=== PATIENT | female | born 1985 | race American Indian/Alaskan Native ===

== ENCOUNTER 2018-07-09 10:13 | Emergency (ER) | payer MEDICAID, OTHER ==
[2018-07-09 10:22] VITALS: RESP 18; O2SAT 98
--- NOTE | 2018-07-09 11:05 | ED PDOC ---
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 Pt states that she began having a mild sore throat about 4 days ago. Took Ibuprofen with some relief. Developed cough around the same time now persistent and productive of yellow/green sputum. States that she is having sharp/achy chest pain with deep breaths and when coughing. Denies hx of HTN, HL, CAD/ND, DM. Mother had cardiac stents. Denies radiation down arm, SOB, dizziness, palpitations, N/V, diarrhea, fever, chills or night sweats. Past Medical History Reviewed: Historical Data, Nursing Documentation, Vital Signs Vital Signs: Last Vital Signs Temp 99 F 07/09/18 10:18 Pulse 86 07/09/18 10:18 Resp 18 07/09/18 10:18 BP 154/83 H 07/09/18 10:18 Pulse Ox 98 07/09/18 10:18 - Medical History PMH: No Chronic Diseases - Family History Family History: States: CAD (mother had cardiac stents) - Social History Current smoker - smoking cessation education provided: No Ex-Smoker (has not smoked in the last 12 months): No Alcohol: Occasional Drugs: Denies - Immunization History Hx Tetanus Toxoid Vaccination: No Hx Influenza Vaccination: No Hx Pneumococcal Vaccination: No - Home Medications Home Medications: Ambulatory Orders Medication Instructions Recorded Amoxicillin/Clavulanate [Augmentin 1 tab PO BID #14 tab 07/10/16 875 MG-125 MG] Ibuprofen [Motrin] 600 mg PO Q6 #20 tab 07/10/16 Ibuprofen [Motrin Tab] 600 mg PO Q6H PRN 7 Days tab 07/09/18 - Allergies Allergies/Adverse Reactions: Allergies Allergy/AdvReac Type Severity Reaction Status Date / Time No Known Allergies Allergy Verified 07/09/18 10:22 Review of Systems ROS Statement: Except As Marked, All Systems Reviewed And Found Negative Constitutional: Negative for: Fever, Chills, Sweats, Weakness, Malaise ENT: Positive for: Nose Discharge, Nose Congestion, Throat Pain. Negative for: Ear Pain Cardiovascular: Positive for: Chest Pain. Negative for: Palpitations Respiratory: Positive for: Cough, SOB with Exertion, Pleuritic Pain, Sputum. Negative for: Shortness of Breath, Hemoptysis Gastrointestinal: Negative for: Nausea, Vomiting Genitourinary Female: Negative for: Dysuria Musculoskeletal: Negative for: Neck Pain Skin: Negative for: Rash Neurological: Positive for: Weakness Physical Exam - Reviewed Nursing Documentation Reviewed: Yes Vital Signs Reviewed: Yes - Physical Exam Appears: Positive for: Non-toxic Head Exam: Positive for: ATRAUMATIC, NORMAL INSPECTION Skin: Positive for: Normal Color Eye Exam: Positive for: Normal appearance ENT: Positive for: Pharynx Is (mild erythema with some swelling) Neck: Positive for: Normal, Painless ROM Cardiovascular/Chest: Positive for: Regular Rate, Rhythm Respiratory: Positive for: Normal Breath Sounds Gastrointestinal/Abdominal: Positive for: Normal Exam Back: Positive for: Normal Inspection Lymphatic: Positive for: Normal Exam Neurologic/Psych: Positive for: Alert, Oriented Medical Decision Making Medical Decision Making: Rapid flu Rapid strep Urine preg CXR EKG Trop Trop < 0.2 EKG sinus rhythm HR 76, no ischemic change. CXR: no consolidation or mass noted by my read. Rapid flu and rapid strep negative - ECG O2 Sat by Pulse Oximetry: 98 Disposition - Clinical Impression Clinical Impression: Viral pharyngitis - Patient ED Disposition Is Patient to be Admitted: No - Disposition Referrals: Glynn Jefferson MD [Staff Provider] - Disposition: Routine/Home Disposition Time: 12:40 Condition: STABLE Additional Instructions: Use Ibuprofen and Tylenol for throat pain. Over the counter cough medication Prescriptions: Ibuprofen [Motrin Tab] 600 mg PO Q6H PRN 7 Days tab PRN Reason: Pain, Moderate (4-7) Instructions: Viral Pharyngitis Forms: [facility] (E[place]ian), [facility] School/Work Excuse Print Language: CONGOLESE
--- NOTE | 2018-07-09 11:36 | CARD ---
APPROVED REPORT Date of service: 07/09/2018 EKG Measurement Heart [id number] <Conclusion> Normal sinus rhythm Normal ECG
[2018-07-09 13:01] VITALS: BP 135/68; PULSE 76; TEMP 98
--- NOTE | 2018-07-09 15:32 | RAD ---
Date of service: 07/09/2018 HISTORY: cough, chest pain COMPARISON: No prior. TECHNIQUE: Chest PA and lateral FINDINGS: LUNGS: No active pulmonary disease. PLEURA: No significant pleural effusion identified. No pneumothorax apparent. CARDIOVASCULAR: No aortic atherosclerotic calcification present. Normal cardiac size. No pulmonary vascular congestion. OSSEOUS STRUCTURES: No significant abnormalities. VISUALIZED UPPER ABDOMEN: Normal. OTHER FINDINGS: None. IMPRESSION: No active disease.
== END 2018-07-09 12:40 | disposition home or self-care (01) ==
LOC: H.ER 10:13
DX: J02.9 Acute pharyngitis, unspecified (principal)